=== PATIENT | male | born 2000 | race Caucasian/White ===

== ENCOUNTER 2022-11-13 21:03 | Emergency (ER) | payer BC, OTHER ==
[2022-11-13 21:25] VITALS: BP 148/84; PULSE 86; RESP 19; TEMP 98.7; BMI 35.2
[2022-11-13] MEDS ORDERED: KETOROLAC TROMETHAMINE 30 MG/1 ML VIAL IVPUSH ONE (21:35)
[2022-11-13] MEDS ORDERED: SODIUM CHLORIDE 1,000 ML IV ONE (21:35)
[2022-11-13] MEDS ORDERED: morphine CARPU-JECT 2 MG/1 ML DISP.SYRIN IVPUSH ONE (21:35)
[2022-11-13] MEDS ORDERED: ONDANSETRON 4 MG/2 ML VIAL IVPB ONE (21:35)
[2022-11-13] MEDS ORDERED: morphine SULFATE 4 MG/ML VIAL ONE (21:41)
[2022-11-13] MEDS ORDERED: KETOROLAC TROMETHAMINE 30 MG/1 ML VIAL ONE (21:42)
[2022-11-13] MEDS ORDERED: ONDANSETRON 4 MG/2 ML VIAL ONE (21:43)
[2022-11-13] MEDS ORDERED: LIDOCAINE PATCH REMOVAL MC SCH (22:00)
[2022-11-13 22:15] LABS: HEMATOCRIT 50.2 % (35.4-49); HEMOGLOBIN 17.2 G/dL (11.7-16.9); MCH 30.2 pg (25.7-33.7); MCHC 34.3 g/dl (32.0-35.9); MEAN CELL VOLUME 88.1 fl (80-96); PLATELET COUNT 176.1 10^3/uL (134-434); WHITE BLOOD COUNT 7.9 10^3/uL (4.0-10.8)
[2022-11-13 22:38] LABS: ALBUMIN 5.4 g/dl (3.4-5.0); BILIRUBIN,TOTAL 0.5 mg/dl (0.2-1); BLOOD UREA NITROGEN 19.4 mg/dl (7-18); CALCIUM 10.1 mg/dl (8.5-10.1); CREATININE 0.9 mg/dl (0.6-1.3); POTASSIUM 3.9 mmol/L (3.5-5.1); SGOT/AST 26.9 U/L (15-37); SGPT/ALT 42.4 U/L (7-52); TOT PROT 7.9 g/dl (6.4-8.2)
[2022-11-13] MEDS ORDERED: CYCLOBENZAPRINE HCL 10 MG TABLET (FP) PO ONE (23:49)
[2022-11-13] MEDS ORDERED: LIDOCAINE 5% TOPICAL PATCH TP ONE (23:49)
[2022-11-13] MEDS ORDERED: CYCLOBENZAPRINE HCL 5 MG TABLET ONE (23:54)
[2022-11-13] MEDS ORDERED: LIDOCAINE 5% TOPICAL PATCH ONE (23:54)
== END 2022-11-14 00:03 | disposition home or self-care (01) ==
LOC: FER 21:03
PROC: 3E033NZ Introduction of Analgesics, Hypnotics, Sedatives into Peripheral Vein, Percutaneous Approach (ICD-10-PCS; principal; 2022-11-13)
PROC: 3E033GC Introduction of Other Therapeutic Substance into Peripheral Vein, Percutaneous Approach (ICD-10-PCS; 2022-11-13)
PROC: 3E033GC Introduction of Other Therapeutic Substance into Peripheral Vein, Percutaneous Approach (ICD-10-PCS; 2022-11-13)
DX: M54.6 Pain in thoracic spine (principal)
CPT/HCPCS: 36415; 74176-TC; 80053; 81003; 81015; 85027; 99284-25